=== PATIENT | male | born 1985 | race Caucasian/White ===

== ENCOUNTER 2017-05-05 19:36 | Emergency (ER) | payer BC ==
[~2017-05-05] VITALS: Ht 182.9 cm; Wt 111.9 kg
[~2017-05-05 19:36] MED LIST: NOHOMEMEDS; SUBOXONE 8 M1 TABLET SL; ZANTAC150 MG PO
[2017-05-05 21:01] LABS: HEMATOCRIT 40.5 % (38.0-50.0); MCH 31.1 PG (29.0-34.0); MCHC 35.3 G/DL (30.0-36.0); MEAN PLAT.VOLUME 10.1 uM^3 (9.0-12.4); PLATELET COUNT 215 K/uL (156-360); RBC DIS.WIDTH-CV 11.9 % (11.8-14.6); RBC DIS.WIDTH-SD 37.8 % (39-53); WHITE BLOOD COUNT 8.8 K/uL (4.1-10.2)
[2017-05-05 21:10] LABS: CHLORIDE 106 mEq/L (99-109); POTASSIUM 3.8 mEq/L (3.7-5.4); SODIUM 139 mEq/L (136-147)
[2017-05-05 21:12] LABS: GLUCOSE 97 mg/dL (70-99)
[2017-05-05 21:14] LABS: ANION GAP 10 MEQ/L (2-14)
[2017-05-05 21:16] LABS: GFR ESTIMATE (CALCULATED) > 59 mL/min/
[2017-05-05 21:17] LABS: UREA NITROGEN (BUN) 16 mg/dL (9-23)
[2017-05-05 21:22] LABS: TROP-I INTERPRETATION NEGATIVE; TROPONIN-I < 0.01 ng/mL (0.0-0.30)
[2017-05-05] MEDS ORDERED: NAPROXEN500 MG PO (21:35)
[2017-05-05 21:41] VITALS: BP 144/86
== END 2017-05-05 21:42 | disposition home or self-care (01) ==
LOC: EME 19:36
DX: R07.9 Chest pain, unspecified (principal); F17.200 Nicotine dependence, unspecified, uncomplicated
CPT/HCPCS: 71020; 80048; 84484; 85027; 93005; 99281; 99283